=== PATIENT | female | born 1980 | race Hispanic/Latino ===

== ENCOUNTER 2018-07-09 10:23 | Emergency (ER) | payer SELFPAY ==
[~2018-07-09 10:23] MED LIST: METH4TAB16 PO; METH500T22 PO; protonix PO; synthroid PO
== END 2018-07-09 11:34 | disposition home or self-care (01) ==
LOC: EDH 10:23
DX: M50.10 Cervical disc disorder with radiculopathy, unspecified cervical region (principal); R20.2 Paresthesia of skin; I10 Essential (primary) hypertension; J45.909 Unspecified asthma, uncomplicated; E07.9 Disorder of thyroid, unspecified; Z88.1 Allergy status to other antibiotic agents; Z88.8 Allergy status to other drugs, medicaments and biological substances

== ENCOUNTER 2019-03-17 19:44 | Emergency (ER) | payer OTHER ==
[2019-03-17 20:20] LABS: BASOPHILS % (AUTO) 0.8 % (0.0-5.0); EOSINOPHILS % (AUTO) 1.9 % (0.0-8.0); HEMATOCRIT 36.4 % (36-48); LYMPHOCYTES % (AUTO) 26.7 % (21.0-51.0); MEAN CORPUSCULAR HEMOGLOBIN 29.2 pg (27.0-33.0); MEAN CORPUSCULAR HGB CONC 33.9 g/dL (32.0-36.0); MONOCYTES % (AUTO) 7.7 % (3.0-13.0); NEUTROPHILS % (AUTO) 62.9 % (40.0-77.0); PLATELET COUNT (AUTO) 269 K/uL (130-400); RED BLOOD CELL COUNT(AUTO) 4.24 MIL/uL (4.00-5.50); RED CELL DISTRIBUTION WIDTH 13.6 % (11.0-15.5); WHITE BLOOD COUNT (AUTO) 7.5 K/uL (4.8-10.8)
[2019-03-17] MEDS ORDERED: METOCLOPRAMIDE 10 MG/2 ML VIAL ONE (20:28)
[2019-03-17] MEDS ORDERED: METHYLPREDNISOLONE SOD SUCC 125MG/2ML VIAL ONE (20:29)
[2019-03-17] MEDS ORDERED: SODIUM CHLORIDE 0.9% 1000ML 1,000 ML IV ONE (20:29)
[2019-03-17] MEDS ORDERED: DiphenhydrAMINE HCL 50 MG/ML VIAL ONE (20:29)
[2019-03-17 20:34] LABS: APPEARANCE,URINE Clear (CLEAR); BILIRUBIN,URINE Negative (NEGATIVE); COLOR,URINE Yellow (YELLOW); GLUCOSE, URINE (UA) Negative (NEGATIVE); KETONES,URINE Negative (NEGATIVE); LEUKOCYTE ESTERASE ,URINE Negative (NEGATIVE); NITRATE,URINE Negative (NEGATIVE); OCCULT BLOOD,URINE Negative (NEGATIVE); PROTEIN,URINE Negative (NEGATIVE); UROBILINOGEN,URINE 0.2 mg/dL (0.2-1.0)
[2019-03-17 20:35] LABS: CREATININE 0.8 mg/dL (0.5-1.5); POTASSIUM 3.3 mmol/L (3.5-5.1)
[2019-03-17 20:39] LABS: HCG,QUAL RESULT NEGATIVE (NEGATIVE)
[2019-03-17 20:40] LABS: ALBUMIN 3.6 g/dL (3.5-5.0); BILIRUBIN,DIRECT 0.1 mg/dL (0.0-0.3); BILIRUBIN,TOTAL 0.5 mg/dL (0.2-1.0); TOTAL PROTEIN, SERUM 7.7 g/dL (6.0-8.3)
[2019-03-17] MEDS ORDERED: ONDANSETRON HCL 4 MG/2 ML VIAL ONE (20:55)
[2019-03-17] MEDS ORDERED: IBUPROFEN 800 MG TAB ONE (20:55)
== END 2019-03-17 22:36 | disposition home or self-care (01) ==
LOC: EDH 19:44
DX: G43.019 Migraine without aura, intractable, without status migrainosus (principal); R11.10 Vomiting, unspecified; J45.909 Unspecified asthma, uncomplicated; I10 Essential (primary) hypertension; E07.9 Disorder of thyroid, unspecified; Z88.1 Allergy status to other antibiotic agents; Z88.8 Allergy status to other drugs, medicaments and biological substances
CPT/HCPCS: 36415; 80048; 80076; 81003; 81025; 84443; 85025; 96361; 96374; 96375; 99285; J1200; J2405; J2765; J2930; J7030

== ENCOUNTER 2020-09-12 12:21 | Observation (INO) | payer MEDICAID ==
[~2020-09-12] VITALS: Ht 160 cm; Wt 99.8 kg
[2020-09-12 13:14] LABS: APPEARANCE,URINE Clear (CLEAR); BILIRUBIN,URINE Negative (NEGATIVE); COLOR,URINE Yellow (YELLOW); GLUCOSE, URINE (UA) Negative (NEGATIVE); KETONES,URINE Trace mg/dL (NEGATIVE); LEUKOCYTE ESTERASE ,URINE Trace (NEGATIVE); NITRATE,URINE Negative (NEGATIVE); OCCULT BLOOD,URINE Negative (NEGATIVE); PH,URINE 6.5 (5.0-8.0); PROTEIN,URINE Trace mg/dL (NEGATIVE)
[2020-09-12 13:16] LABS: BACTERIA,URINE Rare /HPF (None Seen); RBC,URINE 0-1 /HPF (0-1); SQUAMOUS EPITHELIAL CELL,UR Few /HPF (0-2); WBC,URINE 0-1 /HPF (0-1)
[2020-09-12] MEDS ORDERED: LACTATED RINGERS 1000ML IV SCH (14:45)
[2020-09-12] MEDS ORDERED: LACTATED RINGERS 1000ML 1,000 ML IV PRN (14:45)
[2020-09-29] MEDS ORDERED: ALBU0.63 IH (00:26)
[2020-09-29] MEDS ORDERED: NIFE60TA5 PO (00:26)
[2020-09-29] MEDS ORDERED: FERR-82 PO (00:26)
[2020-09-29] MEDS ORDERED: ASPI-1197 PO (01:41)
[2020-09-29] MEDS ORDERED: PREN1TAB80 PO (01:41)
[2020-10-02] MEDS ORDERED: DOCO200C5 PO (17:02)
[2020-10-02] MEDS ORDERED: NIFE60TA5 PO (17:02)
[2020-10-02] MEDS ORDERED: ALBU0.63 IH (17:13)
== END 2020-09-12 18:56 | disposition home or self-care (01) ==
LOC: EDH 12:21 → LDH 12:22
PROVIDERS: ADMIT Specialist; ATTEND Specialist
DX: O26.893 Other specified pregnancy related conditions, third trimester (principal); R06.02 Shortness of breath; R10.30 Lower abdominal pain, unspecified; Z20.822 Contact with and (suspected) exposure to COVID-19; O99.513 Diseases of the respiratory system complicating pregnancy, third trimester; J45.909 Unspecified asthma, uncomplicated; O16.3 Unspecified maternal hypertension, third trimester; Z88.1 Allergy status to other antibiotic agents; Z88.3 Allergy status to other anti-infective agents; Z88.6 Allergy status to analgesic agent; Z88.8 Allergy status to other drugs, medicaments and biological substances; Z3A.33 33 weeks gestation of pregnancy
CPT/HCPCS: 36415; 59025; 81001; 87426; 96360; 99284; G0378 ×6; J7120

== ENCOUNTER 2021-07-27 09:00 | Inpatient (IN) | payer MEDICAID ==
[~2021-07-27] VITALS: Ht 160 cm; Wt 95.9 kg
[~2021-07-27 09:00] MED LIST changes: +ALBU0.63 IH; +ASPI-1197 PO; +DOCO200C5 PO; +FERR-82 PO; +NIFE60TA5 PO; +PREN1TAB80 PO
[2021-07-27 11:31] LABS: BASOPHILS % (AUTO) 0.5 % (0.0-5.0); EOSINOPHILS % (AUTO) 1.4 % (0.0-8.0); HEMATOCRIT 30.9 % (36-48); LYMPHOCYTES % (AUTO) 19.4 % (21.0-51.0); MEAN CORPUSCULAR HEMOGLOBIN 23.6 pg (27.0-33.0); MEAN CORPUSCULAR HGB CONC 30.4 g/dL (32.0-36.0); MEAN CORPUSCULAR VOLUME 77.6 fL (79-99); MONOCYTES % (AUTO) 4.8 % (3.0-13.0); NEUTROPHILS % (AUTO) 73.7 % (40.0-77.0); PLATELET COUNT (AUTO) 355 K/uL (130-400); RED BLOOD CELL COUNT(AUTO) 3.98 MIL/uL (4.00-5.50); RED CELL DISTRIBUTION WIDTH 15.8 % (11.0-15.5); WHITE BLOOD COUNT (AUTO) 8.4 K/uL (4.8-10.8)
[2021-07-27 11:37] LABS: CREATININE 0.7 mg/dL (0.5-1.5); POTASSIUM 3.4 mmol/L (3.5-5.1)
[2021-08-02] VITALS (32 sets, daily range): BP systolic 93–161; BP diastolic 60–119
[2021-08-02] MEDS ORDERED: LACTATED RINGERS 1000ML 1,000 ML IV ONE (07:30)
[2021-08-02] MEDS ORDERED: CEFAZOLIN SODIUM 1 GM VIAL ONE (07:30)
[2021-08-02] MEDS ORDERED: LIDOCAINE PF 100MG/5ML (2%) SYRINGE 5ML ONE (07:41)
[2021-08-02] MEDS ORDERED: ROCURONIUM 10MG/1ML SYR 10 MG/ML ML ONE (07:42)
[2021-08-02] MEDS ORDERED: 0.9%NACL 1000ML 1,000 ML IV ONE (07:42)
[2021-08-02] MEDS ORDERED: PROPOFOL 10 MG/ML 20ML VIAL IV ONE (07:42)
[2021-08-02] MEDS ORDERED: MIDAZOLAM HCL 1 MG/ML 2ML VIAL ONE (07:42)
[2021-08-02] MEDS ORDERED: DEXAMETHASONE SOD PHOSPHATE 4 MG/ML 1ML VIAL ONE (07:43)
[2021-08-02] MEDS ORDERED: ONDANSETRON 4MG INJ ONE (07:43)
[2021-08-02] MEDS ORDERED: FENTANYL CITRATE PF 50 MCG/1 ML 5ML AMP IV ONE (07:44)
[2021-08-02] MEDS ORDERED: DEXMEDETOMIDINE HCL 200 MCG/2 ML VIAL IV ONE (07:47)
[2021-08-02] MEDS ORDERED: MAGNESIUM SULFATE 1 GM/2 ML VIAL ONE (07:50)
[2021-08-02] MEDS: CEFAZOLIN SODIUM 2 GM VIAL IV SCH ×2 (07:50→08:10)
[2021-08-02] MEDS ORDERED: GLYCOPYRROLATE 1 MG/5 ML SYRINGE ONE ×2 (08:22→09:36)
[2021-08-02] MEDS ORDERED: EPHEDRINE SULFATE 50 MG/ML AMPULE ONE (09:00)
[2021-08-02] MEDS ORDERED: MEPERIDINE-PF 25 MG/ML SYG ONE ×2 (09:15→10:19)
[2021-08-02] MEDS ORDERED: NEOSTIGMINE 5MG/5ML SYR IV ONE (09:36)
[2021-08-02] MEDS ORDERED: ACETAMINOPHEN WITH CODEINE 1 TAB TAB PO PRN (10:00)
[2021-08-02] MEDS ORDERED: PROMETHAZINE HCL 25 MG/ML 1ML AMPULE IM PRN ×2 (10:00)
[2021-08-02] MEDS ORDERED: BISACODYL 10 MG SUPP.RECT RC PRN (10:00)
[2021-08-02] MEDS: MEPERIDINE-PF 75 MG/ML SYG IM PRN ×2 (11:59→15:39)
[2021-08-02] MEDS: INSULIN HUMULIN R 100 UNIT/ML 3ML SQ SCH ×3 (12:00→21:00)
[2021-08-02] MEDS ORDERED: CITA-107 PO (14:07)
[2021-08-02] MEDS ORDERED: ATOR10 PO (14:07)
[2021-08-02] MEDS ORDERED: OLME40TA18 PO (14:07)
[2021-08-02] MEDS ORDERED: HYDR12.54 PO (14:07)
[2021-08-02] MEDS ORDERED: LEVO75TA4 PO (14:07)
[2021-08-02] MEDS ORDERED: HYDROCHLOROTHIAZIDE 25 MG TABLET PO ONE (16:30)
[2021-08-02] MEDS ORDERED: HYDRALAZINE 20MG/ML VIAL IV ONE (16:30)
[2021-08-02] MEDS ORDERED: HYDRALAZINE 20MG/ML VIAL IV PRN (17:30)
[2021-08-02] MEDS: 0.9%NACL 1000ML 1,000 ML IV SCH (17:42)
[2021-08-02] MEDS: SIMETHICONE 80 MG TAB.CHEW PO PRN (20:48)
[2021-08-02] MEDS: IBUPROFEN 600 MG TABLET PO PRN (20:48)
[2021-08-02] MEDS: DOCUSATE SODIUM 100 MG CAP PO PRN (20:48)
[2021-08-02 21:58] LABS: HEMATOCRIT 30.1 % (36-48)
[2021-08-03] MEDS: 0.9%NACL 1000ML 1,000 ML IV SCH ×2 (02:00→02:26)
[2021-08-03 04:13] VITALS: BP 137/76
[2021-08-03 06:44] LABS: HEMATOCRIT 28.3 % (36-48); MEAN CORPUSCULAR HEMOGLOBIN 23.5 pg (27.0-33.0); MEAN CORPUSCULAR VOLUME 78.4 fL (79-99); RED BLOOD CELL COUNT(AUTO) 3.61 MIL/uL (4.00-5.50); WHITE BLOOD COUNT (AUTO) 12.5 K/uL (4.8-10.8)
[2021-08-03] MEDS: INSULIN HUMULIN R 100 UNIT/ML 3ML SQ SCH ×4 (07:30→21:00)
[2021-08-03] MEDS ORDERED: DOCUSATE SODIUM 100 MG CAP PO PRN (08:00)
[2021-08-03] MEDS: DOCUSATE SODIUM 100 MG CAP PO PRN ×2 (08:20→21:54)
[2021-08-03] MEDS: SIMETHICONE 80 MG TAB.CHEW PO PRN ×2 (08:20→21:53)
[2021-08-03] MEDS: IBUPROFEN 600 MG TABLET PO PRN (08:20)
[2021-08-03] MEDS: HYDROCHLOROTHIAZIDE 25 MG TABLET PO SCH (08:21)
[2021-08-03] MEDS: LEVOTHYROXINE 75 MCG TABLET PO SCH (08:21)
[2021-08-03] MEDS ORDERED: NON-FORMULARY MEDICATION 1 EACH (Hydrochlorothiazide 12.5 MG) PO SCH (09:00)
[2021-08-03 16:10] VITALS: BP 137/81
[2021-08-03] MEDS ORDERED: HYDROCODONE/ACETAMINOPHEN 5/325 MG TAB PO PRN (17:00)
[2021-08-03] MEDS: ACETAMINOPHEN WITH CODEINE 1 TAB TAB PO PRN (17:42)
[2021-08-03] MEDS: IBUPROFEN 800 MG TAB PO PRN (18:41)
[2021-08-03 19:23] VITALS: BP 152/83
[2021-08-03 21:50] VITALS: BP_SYST 138; BP_SYST 157; BP_DIAS 90; BP_DIAS 92
[2021-08-03 23:08] VITALS: BP 136/88
[2021-08-04] MEDS: ACETAMINOPHEN WITH CODEINE 1 TAB TAB PO PRN (00:51)
[2021-08-04 03:50] VITALS: BP 109/55
[2021-08-04] MEDS: INSULIN HUMULIN R 100 UNIT/ML 3ML SQ SCH ×2 (07:30→11:30)
[2021-08-04 08:15] VITALS: BP 132/81
[2021-08-04] MEDS: LEVOTHYROXINE 75 MCG TABLET PO SCH (09:00)
[2021-08-04] MEDS: HYDROCHLOROTHIAZIDE 25 MG TABLET PO SCH (09:00)
[2021-08-04] MEDS: SIMETHICONE 80 MG TAB.CHEW PO PRN (09:14)
[2021-08-04] MEDS: DOCUSATE SODIUM 100 MG CAP PO PRN (09:14)
[2021-08-04] MEDS: IBUPROFEN 800 MG TAB PO PRN (09:15)
== END 2021-08-04 12:20 | disposition home or self-care (01) | DRG 519 ==
LOC: DAHIP 08-02 07:17 → WSH 08-02 11:00
PROVIDERS: ADMIT Specialist; ATTEND Specialist
PROC: 0UT90ZZ Resection of Uterus, Open Approach (ICD-10-PCS; principal; 2021-08-02 07:55)
DX: D25.2 Subserosal leiomyoma of uterus (principal); N92.0 Excessive and frequent menstruation with regular cycle; Z20.822 Contact with and (suspected) exposure to COVID-19
CPT/HCPCS: 36415; 80048; 82948; 84703; 85014; 85018; 85025; 85027; 86850; 86900; 86901; 87635; 88307; A4344; G0378; J0360; J0690; J1100; J1815; J2001; J2175; J2250; J2405; J2550; J2704; J2710; J3010; J3475; J3490; J7030; J7120

== ENCOUNTER 2023-07-23 15:38 | Emergency (ER) | payer MEDICAID ==
[~2023-07-23] VITALS: Ht 157.5 cm; Wt 92.5 kg
[~2023-07-23 15:38] MED LIST changes: -ALBU0.63 IH; -ASPI-1197 PO; +ATOR10 PO; +CITA-107 PO; -DOCO200C5 PO; +HYDR12.54 PO; +LEVO75TA4 PO; -METH4TAB16 PO; -METH500T22 PO; -NIFE60TA5 PO; +OLME40TA18 PO; -PREN1TAB80 PO; -protonix PO; -synthroid PO
[2023-07-23 16:55] LABS: BASOPHILS # (AUTO) 0.05 K/uL (0.00-0.20); BASOPHILS % (AUTO) 0.5 % (0.0-5.0); EOSINOPHILS # (AUTO) 0.07 K/uL (0.00-0.70); EOSINOPHILS % (AUTO) 0.8 % (0.0-8.0); HEMATOCRIT 42.4 % (36-48); IMMATURE GRANULOCYTE ABSOLUTE 0.04 K/uL (0-1); LYMPHOCYTES # (AUTO) 1.6 K/uL (1.0-4.8); LYMPHOCYTES % (AUTO) 17.4 % (21.0-51.0); MEAN CORPUSCULAR HEMOGLOBIN 29.2 pg (27.0-33.0); MEAN CORPUSCULAR HGB CONC 33.3 g/dL (32.0-36.0); MEAN CORPUSCULAR VOLUME 87.8 fL (79-99); MONOCYTES # (AUTO) 0.4 K/uL (0.1-1.0); MONOCYTES % (AUTO) 4.8 % (3.0-13.0); NEUTROPHILS % (AUTO) 76.1 % (40.0-77.0); PLATELET COUNT (AUTO) 304 K/uL (130-400); RED BLOOD CELL COUNT(AUTO) 4.83 MIL/uL (4.00-5.50); RED CELL DISTRIBUTION WIDTH 13.2 % (11.0-15.5); WHITE BLOOD COUNT (AUTO) 9.2 K/uL (4.8-10.8)
[2023-07-23 17:12] LABS: CREATININE 0.8 mg/dL (0.5-1.0); POTASSIUM 3.2 mmol/L (3.5-5.1)
[2023-07-23 17:17] LABS: ALBUMIN 4.3 g/dL (3.5-5.0); BILIRUBIN,TOTAL 1.3 mg/dL (0.2-1.0); TOTAL PROTEIN, SERUM 8.5 g/dL (6.0-8.3)
[2023-07-23 18:19] LABS: RAPID GROUP A STREP negative (NEGATIVE)
[2023-07-23 18:32] LABS: COVID19 (SARS ANTIGEN RAPID) PRESUMPTIVE NEGATIVE (NEGATIVE)
[2023-07-23 18:40] LABS: INFLUENZA TYPE A Negative For Type A (NEGATIVE); INFLUENZA TYPE B Negative For Type B (NEGATIVE)
[2023-07-23 18:47] LABS: ADD UA MICROSCOPIC YES; APPEARANCE,URINE CLEAR (CLEAR); BILIRUBIN,URINE NEGATIVE (NEGATIVE); COLOR,URINE YELLOW (YELLOW); GLUCOSE, URINE (UA) NEGATIVE (NEGATIVE); KETONES,URINE NEGATIVE (NEGATIVE); LEUKOCYTE ESTERASE ,URINE NEGATIVE Leu/uL (NEGATIVE); NITRATE,URINE NEGATIVE (NEGATIVE); OCCULT BLOOD,URINE NEGATIVE (NEGATIVE); PROTEIN,URINE 10 mg/dL (NEGATIVE); UROBILINOGEN,URINE 0.2 mg/dL (0.2-1.0)
[2023-07-23] MEDS ORDERED: PROM12.513 PO (18:50)
[2023-07-23 18:51] LABS: BACTERIA,URINE RARE /HPF (None Seen); MUCUS,URINE RARE LPF (None Seen); SQUAMOUS EPITHELIAL CELL,UR RARE /HPF (0-2); WBC,URINE 0-1 /HPF (0-1)
[2023-07-23] MEDS: POTASSIUM BICARB/CIT AC 25 MEQ TABLET.EFF PO ONE (18:56)
[2023-07-23 19:03] VITALS: BP 169/98; PULSE 88; RESP 18; O2SAT 98
== END 2023-07-23 19:04 | disposition home or self-care (01) ==
LOC: EDH 15:38
DX: I10 Essential (primary) hypertension (principal); E78.00 Pure hypercholesterolemia, unspecified; E03.9 Hypothyroidism, unspecified; Z20.822 Contact with and (suspected) exposure to COVID-19
CPT/HCPCS: 36415; 80053; 81001; 84484; 85025; 87426; 87804; 87880; 93005

== ENCOUNTER 2024-06-08 12:02 | Emergency (ER) | payer SELFPAY ==
[~2024-06-08] VITALS: Ht 157.5 cm; Wt 95.3 kg
[~2024-06-08 12:02] MED LIST changes: +PROM12.513 PO
--- NOTE | 2024-06-08 12:21 | ERN ---
ED Note History of Present Illness Stated Complaint: CHEST PAIN,COVID,EYES/EARS HURT,COUGH,DIZZY CONFUS Chief Complaint: Flu Symptoms Time Seen by MD: 12:04 Dictation: PATIENT IS A 43-YEAR-OLD FEMALE COMING IN TODAY WITH FLU-LIKE SYMPTOMS TO INCLUDE DRY COUGH BODY ACHES, LOSS OF SMELL, GENERALIZED BODY WEAKNESS SINCE LAST SATURDAY. SHE HAS HAD LOW-GRADE FEVER LAST WEEK NONE TODAY. NO NAUSEA VOMITING NO DIARRHEA NO CHEST PAIN. STATES SHE DIAGNOSED HERSELF SATURDAY WITH A HOME TEST FOR COVID-19 AND WAS POSITIVE. SHE CAME IN TODAY BECAUSE SHE HAS NOT BEEN ABLE TO GET INTO SEE HER DOCTORS AT [facility]. ALSO STATES SHE HAS TAKEN PREDNISONE SHE BOUGHT IN [place]. Allergies: Coded Allergies: levofloxacin (Unverified Allergy, Unknown, 01/31/16) TROUBLE BREATHING loratadine (Unverified Allergy, Unknown, 01/31/16) TROUBLE BREATHING meloxicam (Unverified Allergy, Unknown, 01/31/16) TROUBLE BREATHING pseudoephedrine (Unverified Allergy, Unknown, 01/31/16) TROUBLE BREATHING valdecoxib (Unverified Allergy, Unknown, 01/31/16) TROUBLE BREATHING Home Meds Active Scripts Promethazine HCl (Promethazine HCl) 12.5 Mg Tablet, 12.5 MG PO TIDP PRN for nausea/vomiting, #12 TAB 0 Refills Prov:CLAUDIO CUEVASBe 07/23/23 Reported Medications Citalopram Hydrobromide (Citalopram HBr) 20 Mg Tablet, 20 MG PO DAILY, TAB 08/02/21 Levothyroxine Sodium (Synthroid 75 Mcg Tab) 75 Mcg Tablet, 75 MCG PO DAILY, TAB 08/02/21 Hydrochlorothiazide (Hydrochlorothiazide) 12.5 Mg Tablet, 12.5 MG PO DAILY, TAB 08/02/21 Olmesartan Medoxomil (Olmesartan Medoxomil) 40 Mg Tablet, 40 MG PO DAILY, TAB 08/02/21 Atorvastatin Calcium (LIPITOR) 20 Mg Tab, 20 MG PO DAILY, TAB 08/02/21 Ferrous Sulfate (Iron) 325 Mg Tablet, 325 MG PO DAILY, TAB 09/29/20 Past Medical History Past Medical History: Diabetes-Type II, High Cholesterol, Heart Disease, Hypertension, Hypothyroid Surgical History: None History: Not Applicable RN Note Reviewed/Agreed w/PFSH: Yes Review of System Dictation CONSTITUTIONAL: NEGATIVE EXCEPT FOR HPI CHILLS HEAD/FACE: NEGATIVE EXCEPT FOR HPI EENT: NEGATIVE EXCEPT FOR HPI SORE THROAT WITH PAINFUL SWALLOWING RESPIRATORY: NEGATIVE EXCEPT FOR HPI DRY COUGH GASTROINTESTINAL/ABDOMINAL: NEGATIVE EXCEPT FOR HPI GENITOURINARY: NEGATIVE EXCEPT FOR HPI MUSCULOSKELETAL: NEGATIVE EXCEPT FOR HPI INTEGUMENTARY: NEGATIVE EXCEPT FOR HPI NEUROLOGICAL/PSYCH: NEGATIVE EXCEPT FOR HPI HEMATOLOGIC/LYMPHATIC: NEGATIVE EXCEPT FOR HPI ALL SYSTEMS NEGATIVE, EXCEPT NOTED ABOVE. 13 POINT REVIEW OF SYSTEMS ASSESSED AND ALL NEGATIVE EXCEPT FOR ABOVE. Initial Vital Sign VS Vital Signs Date Time Temp Pulse Resp B/P (MAP) Pulse Ox O2 Delivery O2 Flow Rate FiO2 06/08/24 12:17 97.5 87 20 155/96 97 Room Air 0 06/08/24 13:29 21 Physical Exam Dictation VITAL SIGNS REVIEWED GENERAL APPEARANCE: ALERT, ORIENTED X 3, MILD ACUTE DISTRESS, WELL DEVELOPED, NOURISHED. HEAD AND FACE: NON-TRAUMATIC. EYES: PERRL, PINK CONJUNCTIVAS, EYELID NO TRAUMA, ANTERIOR CHAMBER WITH ARCUS SENILIS. EARS: PINNAS INTACT AND NO SIGNS OF TRAUMA OR ERYTHEMA EAR CANALS CLEAR AND NO DISCHARGE TM NO ERYTHEMA NOSE: CLEAR DISCHARGE, NO BLEEDING. OROPHARYNX: MOUTH NORMAL, TONGUE PINK, PHARYNX CLEAR MILD PHARYNGEAL ERYTHEMA, TONSILS NO EXUDATES, NO ABSCESSES NOTED, MUCOUS MEMBRANE MOIST UVULA MIDLINE, VOICE IS CLEAR NECK: SUPPLE, NON-TENDER, NO THYROMEGALY, NO MASSES, NO JVD, NO BRUITS BREAST:DEFERRED CHEST:NO TENDERNESS, NO CREPITUS, NO PARADOXICAL MOVEMENT, NO RETRACTIONS LUNGS:CLEAR, WELL-VENTILATED, SYMMETRIC, NO RALES, NO WHEEZING, NO RHONCHI, NO STRIDOR, GOOD BREATH SOUNDS BILATERALLY HEART: REGULAR RATE, REGULAR RHYTHM, NO MURMUR, NO GALLOPS VASCULAR: NO PERIPHERAL EDEMA, ABDOMEN: SOFT, POSITIVE BOWEL SOUNDS, NONDISTENDED, NO GUARDING, NONTENDER, NO REBOUND, NO MASSES NO HEPATOMEGALY, NO SPLENOMEGALY, NO BAUGH'S SIGN, NO HERNIAS. RECTAL: DEFERRED GENITAL: DEFERRED NEUROLOGICAL: NORMAL SPEECH, MOTOR FUNCTION INTACT, SENSORY FUNCTION INTACT MUSCULOSKELETAL: NECK NONTENDER, FULL RANGE OF MOTION, BACK NONTENDER, FULL RANGE OF MOTION, EXTREMITIES: NONTENDER, FULL RANGE OF MOTION SKIN: COLOR PINK, DRY, NO TURGOR, NO RASH, NO LACERATIONS, NO ABRASIONS, NO CONTUSIONS. LYMPHATIC: DEFERRED Results (Laboratory/Radiology) Laboratory/Radiology Laboratory Tests Test 06/08/24 12:24 06/08/24 14:45 Influenza Type A Antigen Negative For Type A Influenza Type B Antigen Negative For Type B SARS-CoV-2 Antigen (Rapid) POSITIVE FOR SARS AG Group A Streptococcus Rapid negative (NEGATIVE) White Blood Count 10.5 K/uL (4.8-10.8) Red Blood Count 4.76 MIL/uL (4.00-5.50) Hemoglobin 13.7 g/dL (12.0-16.0) Hematocrit 40.7 % (36-48) Mean Corpuscular Volume 85.5 fL (79-99) Mean Corpuscular Hemoglobin 28.8 pg (27.0-33.0) Mean Corpuscular Hemoglobin Concent 33.7 g/dL (32.0-36.0) Red Cell Distribution Width 12.6 % (11.0-15.5) Platelet Count 288 K/uL (130-400) Mean Platelet Volume 10.3 fL (7.5-10.5) Immature Granulocyte % (Auto) 0.9 % (0-1) Neutrophils (%) (Auto) 78.6 % (40.0-77.0) H Lymphocytes (%) (Auto) 14.0 % (21.0-51.0) L Monocytes (%) (Auto) 4.5 % (3.0-13.0) Eosinophils (%) (Auto) 1.4 % (0.0-8.0) Basophils (%) (Auto) 0.6 % (0.0-5.0) Neutrophils # (Auto) 8.3 K/uL (1.8-7.7) H Lymphocytes # (Auto) 1.5 K/uL (1.0-4.8) Monocytes # (Auto) 0.5 K/uL (0.1-1.0) Eosinophils # (Auto) 0.15 K/uL (0.00-0.70) Basophils # (Auto) 0.06 K/uL (0.00-0.20) Absolute Immature Granulocyte (auto 0.09 K/uL (0-1) Nucleated Red Blood Cells 0.0 % (0.0-0.19) Sodium Level 137 mmol/L (136-145) Potassium Level 3.1 mmol/L (3.5-5.1) L Chloride Level 97 mmol/L (101-111) L Carbon Dioxide Level 32 mmol/L (21-32) Blood Urea Nitrogen 16 mg/dL (7-18) Creatinine 0.9 mg/dL (0.5-1.0) Glomerular Filtration Rate Calc 80 mL/min (>90) Random Glucose 201 mg/dL (70-105) H Total Calcium 9.1 mg/dL (8.5-10.1) Labs Reviewed?: Yes ED Course ED Course Orders Procedure Category Date Status Time Dexamethasone 4mg/Ml PHA 06/08/24 Complete 1ml Vial (Dexametha 12:30 Acetaminophen 500mg PHA 06/08/24 Complete Tab (Tylenol 500mg T 12:30 Covid19 (Sars Antigen LAB 06/08/24 Complete Rapid) 12:19 Rapid (Group A Strep) LAB 06/08/24 Complete 12:19 Influenza Type A & B, LAB 06/08/24 Complete Rapid 12:19 Cbc With Differential LAB 06/08/24 Complete 14:26 Basic Metabolic Panel LAB 06/08/24 Complete 14:26 0.9%Nacl 1000ml (Ns PHA 06/08/24 Complete 1000ml) 14:30 Potassium Bicarb/Cit PHA 06/08/24 Complete Ac 25meq (K-Lyte Ta 15:30 Current Medications Medications (Trade) Dose Ordered Sig/Callie Route PRN Reason Start Time Stop Time Status Last Admin Dose Admin Acetaminophen (TYLenol 500MG TAB) 1,000 mg ONCE ONCE PO 06/08/24 12:30 06/08/24 12:31 DC 06/08/24 13:33 Dexamethasone Sodium Phosphate (dexaMETHasone 4MG/ML 1ML VIAL) 8 mg ONCE ONCE IM 06/08/24 12:30 06/08/24 12:31 DC 06/08/24 13:32 Potassium Bicarbonate (K-Lyte Tablet Eff 25 Meq Tablet.eff) 25 meq ONCE ONCE PO 06/08/24 15:30 06/08/24 15:37 DC Sodium Chloride 1,000 ml @ 0 mls/hr ONCE ONCE IV 06/08/24 14:30 06/08/24 14:31 DC 06/08/24 14:52 Vital Signs Date Time Temp Pulse Resp B/P (MAP) Pulse Ox O2 Delivery O2 Flow Rate FiO2 06/08/24 13:29 97.5 87 20 155/96 97 Room Air* 0 21 06/08/24 12:17 97.5 87 20 155/96 97 Room Air 0 5 40 PATIENT POSITIVE FOR SARS COVID. WE WILL BE DISCHARGED HOME WITH PAXLOVID. IN ADDITION POTASSIUM 3.1 WE WILL REPLACED HERE IN THE EMERGENCY ROOM. FINALLY, BLOOD SUGAR 201, WE WILL BE DISCHARGED HOME ON METFORMIN AND TOLD TO SEE HER PRIMARY CARE DOCTOR. Medical Decision Making MDM MDM: DIFFERENTIAL DIAGNOSIS: DEHYDRATION/UNCONTROLLED DIABETES/FLU/COVID/ RATIONALE: TESTS CONSIDERED AND ORDERED SECONDARY TO SHARED DECISION MAKING INCLUDE: LABS PREVIOUS OUTSIDE RECORDS REVIEWED: OLD ER VISITS. RISK OF COMPLICATION AND/OR MORBIDITY OR MORTALITY OF PATIENT MANAGEMENT: NONE MEDICATIONS-PER MEDICATION RECONCILIATION NEED FOR HOSPITALIZATION: PATIENT DOES NOT MEET CRITERIA FOR HOSPITALIZATION. NO NEED FOR EMERGENCY MAJOR/MINOR SURGERY: NO THERE ARE NO SOCIAL CONCERNS WITH THIS PATIENT. PRESCRIPTION DRUG MANAGEMENT PAXLOVID/METFORMIN PRESCRIPTIONS WILL INCLUDE SYMPTOMATIC CARE PATIENT'S PRIOR EXTERNAL MEDICAL RECORDS FROM OTHER ER VISITS WERE REVIEWED BY ME INDICATED. PRIOR TESTING AND RESULTS FROM PREVIOUS VISITS WERE REVIEWED. PRIOR TESTS WERE TAKEN INTO ACCOUNT WITH MEDICAL DECISION MAKING AND RESOURCE UTILIZATION, INDEPENDENT HISTORIAN/HISTORIANS WERE USED TO OBTAIN COMPLETE MEDICAL HISTORY. I INDEPENDENTLY INTERPRETED THE TEST THAT WERE PERFORMED, RESULTS WERE REVIEWED BY ME AND CONSIDERED FINDINGS ON RADIOLOGY IF ORDERED. MEDICAL MANAGEMENT AND EXAMINATION INTERPRETATION DISCUSSIONS WERE HAD BY ME WITH OTHER QUALIFIED HEALTHCARE PROFESSIONALS INDICATED FOR THE PATIENT'S CARE. DX & DISP Disposition: Discharge Departure Impression: Primary Impression: COVID-19 virus infection Additional Impressions: Hypokalemia, Uncontrolled diabetes mellitus Condition: Stable Scripts Metformin HCl (Metformin HCl) 1,000 Mg Tablet 1000 MG PO BID, #60 TAB Prov: RADHA MOORE ENCODING CLERK 06/08/24 Nirmatrelvir/Ritonavir (Paxlovid 300-100 mg Dose Pack) 300 Mg (150 Mg X 2)-100 Mg Tab.ds.pk 1 EACH PO for 5 Days, #30 TAB TAKE DIRECTED TWICE A DAY FOR FIVE DAYS. Prov: RADHA MOORE ENCODING CLERK 06/08/24 Additional Instructions: FOLLOW-UP WITH PRIMARY CARE PROVIDER IN 1 TO 2 DAYS. TAKE MEDICATIONS DIRECTED HERE IN THE EMERGENCY ROOM. OKAY TO CONTINUE HOME MEDICATIONS UNLESS OTHERWISE DISCUSSED DURING YOUR VISIT IN THE EMERGENCY ROOM TODAY. RETURN TO YOUR NEAREST EMERGENCY ROOM IF SYMPTOMS WORSEN OR IF THERE IS NO IMPROVEMENT. CALL 911 IF YOU NEED IMMEDIATE ASSISTANCE. TAKE TYLENOL OR MOTRIN [id number] NEEDED AND IF NO CONTRAINDICATIONS ARE PRESENT. INCREASE ORAL HYDRATION. A WOUND CULTURE OR URINE CULTURE WAS ORDERED HERE IN THE EMERGENCY ROOM DEPARTMENT PLEASE FOLLOW-UP WITH PRIMARY CARE PROVIDER AND ADVISE THEM TO GET REPEAT PORTS FROM OUR FACILITY. IF YOU HAD ANY BRYCE WRAP/SPLINTS THAT WERE APPLIED HERE, PLEASE DO NOT REMOVE THEM UNTIL YOU SEE YOUR PRIMARY CARE OR SPECIALTY. INCREASE YOUR WATER INTAKE. TAKE PAXLOVID DIRECTED UNTIL GONE. TAKE METFORMIN DIRECTED TWICE A DAY WITH MEALS NO WORK UNTIL CLEARED BY YOUR [facility] DOCTOR. Referrals: FLAQUITO GEORGE DO (PCP) Time of Disposition: 15:44 I have reviewed the case, and I agree with, Diagnosis and Plan RADHA MOORE NP Jun 08, 2024 12:21
[2024-06-08] MEDS: dexaMETHasone SOD PHOSPHATE 4 MG/ML 1ML VIAL IM ONE (13:32)
[2024-06-08] MEDS: acetaMINOPHEN 500 MG TABLET PO ONE (13:33)
[2024-06-08 14:23] LABS: RAPID GROUP A STREP negative (NEGATIVE)
[2024-06-08 14:36] LABS: INFLUENZA TYPE A Negative For Type A (NEGATIVE); INFLUENZA TYPE B Negative For Type B (NEGATIVE)
[2024-06-08] MEDS: 0.9%NACL 1000ML 1,000 ML IV ONE (14:52)
[2024-06-08 15:08] LABS: BASOPHILS # (AUTO) 0.06 K/uL (0.00-0.20); BASOPHILS % (AUTO) 0.6 % (0.0-5.0); EOSINOPHILS # (AUTO) 0.15 K/uL (0.00-0.70); EOSINOPHILS % (AUTO) 1.4 % (0.0-8.0); HEMATOCRIT 40.7 % (36-48); IMMATURE GRANULOCYTE ABSOLUTE 0.09 K/uL (0-1); LYMPHOCYTES # (AUTO) 1.5 K/uL (1.0-4.8); MEAN CORPUSCULAR HEMOGLOBIN 28.8 pg (27.0-33.0); MEAN CORPUSCULAR HGB CONC 33.7 g/dL (32.0-36.0); MEAN CORPUSCULAR VOLUME 85.5 fL (79-99); MONOCYTES # (AUTO) 0.5 K/uL (0.1-1.0); MONOCYTES % (AUTO) 4.5 % (3.0-13.0); NEUTROPHILS # (AUTO) 8.3 K/uL (1.8-7.7); NEUTROPHILS % (AUTO) 78.6 % (40.0-77.0); PLATELET COUNT (AUTO) 288 K/uL (130-400); RED BLOOD CELL COUNT(AUTO) 4.76 MIL/uL (4.00-5.50); RED CELL DISTRIBUTION WIDTH 12.6 % (11.0-15.5); WHITE BLOOD COUNT (AUTO) 10.5 K/uL (4.8-10.8)
[2024-06-08 15:23] LABS: CREATININE 0.9 mg/dL (0.5-1.0); POTASSIUM 3.1 mmol/L (3.5-5.1)
[2024-06-08 15:33] LABS: COVID19 (SARS ANTIGEN RAPID) POSITIVE FOR SARS AG (NEGATIVE)
[2024-06-08] MEDS ORDERED: NIRM1TAB9 PO (15:49)
[2024-06-08] MEDS ORDERED: METF-446 PO (15:49)
[2024-06-08] MEDS: PoTASSium BIcarbonate/CIT AC 25 MEQ TABLET.EFF PO ONE (16:22)
[2024-06-08 16:26] VITALS: BP 134/82; PULSE 82; RESP 20; TEMP 97.5; O2SAT 97
== END 2024-06-08 16:31 | disposition home or self-care (01) ==
LOC: EDH 12:02
DX: U07.1 COVID-19 (principal); E87.6 Hypokalemia; E11.65 Type 2 diabetes mellitus with hyperglycemia; E03.9 Hypothyroidism, unspecified; E78.00 Pure hypercholesterolemia, unspecified; I10 Essential (primary) hypertension; Z79.84 Long term (current) use of oral hypoglycemic drugs; Z79.890 Hormone replacement therapy; Z79.899 Other long term (current) drug therapy; Z88.1 Allergy status to other antibiotic agents; Z88.8 Allergy status to other drugs, medicaments and biological substances
CPT/HCPCS: 99283; 87426; 80048; 85025; 87880; 87804 ×2; 36415; 96372; J1100; J7030